=== PATIENT | female | born 1950 ===

== ENCOUNTER 2017-11-11 09:58 | Day surgery (SDC) | payer MEDICARE ==
[2017-11-11 10:40] VITALS: BMI 31.4
[2017-11-11] MEDS ORDERED: Propofol 10 mg/ml Inj (20 ML) ONE ×3 (10:59→11:47)
[2017-11-11] MEDS ORDERED: Midazolam 2 MG/2 ML VIAL ONE (11:09)
[2017-11-11 15:52] VITALS: TEMP 97.8
[2017-11-11 15:53] VITALS: PULSE 59
[2017-11-11 15:56] VITALS: BP 170/95; RESP 19; O2SAT 99
== END 2017-11-11 12:55 | disposition home or self-care (01) ==
LOC: C.ENDO 09:58
PROVIDERS: ATTEND Internal Medicine Gastroenterology
DX: Z12.11 Encounter for screening for malignant neoplasm of colon (principal); K64.1 Second degree hemorrhoids; K59.00 Constipation, unspecified
CPT/HCPCS: 45378; J2250; J2704

== ENCOUNTER 2017-11-18 09:30 | Inpatient (IN) | payer MEDICARE ==
[2017-11-18 09:30] VITALS: BMI 31.4
--- NOTE | 2017-11-18 10:25 | C.PDOC ---
History Of Present Illness 67-YEAR-OLD FEMALE, PRESENTS TO THE EMERGENCY DEPARTMENT S/P COLONOSCOPY BY DR KHOURY ONE WEEK AGO. PATIENT NOW COMPLAINING OF NEW ONSET PERSISTENT INTERMITTENT B/L UPPER QUADRANT PAIN THAT IS WORSE WITH EATING. PATIENT REPORTS SHE IS ONLY ABLE TO TOLERATE A SLICE OF BREAD. STATES SHE TRIED REACHING DR KHOURY, PT REP, BUT WAS UNABLE TO GET IN CONTACT. DENIES FEVER. Time Seen by Provider: 11/18/17 10:06 Chief Complaint (Nursing): Abdominal Pain History Per: Patient History/Exam Limitations: no limitations Onset/Duration Of Symptoms: Days Current Symptoms Are (Timing): Still Present Severity: Moderate Location Of Pain/Discomfort: RLQ, LLQ Past Medical History Reviewed: Historical Data, Nursing Documentation, Vital Signs Vital Signs: Last Vital Signs Temp 98.6 F 11/18/17 15:13 Pulse 61 11/18/17 15:13 Resp 20 11/18/17 15:13 BP 180/60 H 11/18/17 15:13 Pulse Ox 98 11/18/17 15:57 - Medical History PMH: HTN, Rheumatoid Arthritis Family History: States: No Known Family Hx - Social History Hx Alcohol Use: No Hx Substance Use: No - Immunization History Hx Tetanus Toxoid Vaccination: No Hx Influenza Vaccination: Yes Hx Pneumococcal Vaccination: No Review Of Systems Constitutional: Negative for: Fever Respiratory: Negative for: Shortness of Breath Gastrointestinal: Positive for: Abdominal Pain. Negative for: Nausea, Vomiting Musculoskeletal: Negative for: Back Pain Neurological: Negative for: Weakness, Numbness, Headache, Dizziness Physical Exam - Physical Exam Appears: Non-toxic, No Acute Distress Skin: Normal Color, Warm, Dry, No Rash Head: Normacephalic Eye(s): bilateral: PERRL Oral Mucosa: Moist Lips: Normal Appearing Neck: Normal ROM Cardiovascular: Rhythm Regular, No Murmur Respiratory: Normal Breath Sounds, No Accessory Muscle Use Gastrointestinal/Abdominal: Soft, Tenderness (B/L LQ), No Guarding, No Rebound Extremity: Normal ROM, No Deformity, No Swelling Neurological/Psych: Oriented x3, Normal Speech ED Course And Treatment - Laboratory Results Result Diagrams: 11/18/17 10:40 11/18/17 10:40 ECG: Interpreted By Me, Viewed By Me ECG Rhythm: Sinus Rhythm, PVC ECG Interpretation: No Acute Changes Rate From EC O2 Sat by Pulse Oximetry: 98 (RA) Pulse Ox Interpretation: Normal Progress - Re-Evaluation Re-evaluation Note: 11/18/17 11:39 AWARE OF ER FINDINGS, REQ US, WILL EVALUATE IN ER 11/18/17 14:49 NAD NO CHANGE SINCE PRIOR EVAL. DR KHOURY @ BEDSIDE. PER DR KHOURY, +ACUTE LITZY. D/W SURG RESIDENT AWARE OF ER FINDINGS WILL EVAL - Data Reviewed Data Reviewed: Lab, Diagnostic imaging, EKG, Old records Disposition Counseled Patient/Family Regarding: Studies Performed, Diagnosis - Disposition Disposition: HOSPITALIZED Disposition Time: 14:50 Condition: SERIOUS - POA Present On Arrival: None - Clinical Impression Clinical Impression: Acute cholecystitis, Calculous cholecystitis with obstruction - Scribe Statement The provider has reviewed the documentation as recorded by the Scribe (Momo Asif) All medical record entries made by the Scribe were at my direction and personally dictated by me. I have reviewed the chart and agree that the record accurately reflects my personal performance of the history, physical exam, medical decision making, and the department course for this patient. I have also personally directed, reviewed, and agree with the discharge instructions and disposition. Decision To Admit - Pt Status Changed To: Hospital Disposition Of: Inpatient - Admit Certification Admit to Inpatient:: After my assessment, the patient will require hospitalization for at least two midnights. This is because of the severity of symptoms shown, intensity of services needed, and/or the medical risk in this patient being treated as an outpatient. - InPatient: Physician Admission Certification:: SEE NOTE - . Bed Request Type: Regular Admitting Physician: Christiano Quintanilla Patient Diagnosis: Acute cholecystitis, Calculous cholecystitis with obstruction
[2017-11-18] MEDS ORDERED: Sodium Chloride 0.9% 1,000 ML IV ONE ×2 (10:35→14:52)
[2017-11-18 10:49] LABS: BASO # 0.1 K/uL (0.0-0.2); BASO % 1.2 % (0.0-2.0); EOS # 0.2 K/uL (0.0-0.7); EOS % 3.2 % (0.0-4.0); HEMOGLOBIN 12.9 g/dL (11.0-16.0); LYMPH # 1.2 K/uL (1.0-4.3); LYMPH % 20.9 % (20.0-40.0); MEAN CORPUSCULAR HEMOGLOBIN 27.2 pg (27.0-31.0); MEAN CORPUSCULAR HGB CONC 33.6 g/dL (33.0-37.0); MEAN PLATELET VOLUME 8.6 fL (7.2-11.7); MONO # 0.7 K/uL (0.0-0.8); MONO % 11.1 % (0.0-10.0); NEUT # 3.7 K/uL (1.8-7.0); NEUT % 63.6 % (50.0-75.0); RBC 4.75 Mil/uL (3.80-5.20); WHITE BLOOD COUNT 5.9 K/uL (4.8-10.8)
[2017-11-18 11:24] LABS: ALB/GLOB RATIO 0.9 (1.0-2.1); ALT/SGPT 568 U/L (9-52); AST/SGOT 521 U/L (14-36); BLOOD UREA NITROGEN 9 mg/dL (7-17); GFR AFRICAN-AMERICAN > 60; GFR NON-AFRICAN AMERICAN > 60; LIPASE 195 U/L (23-300)
[2017-11-18] MEDS ORDERED: Iodixanol 320 MG/ML 100 ML BOTTLE IV ONE (11:50)
[2017-11-18 12:06] LABS: SQUAMOUS EPITHIAL 4 /hpf (0-5); URINE BACTERIA RARE (<OCC); URINE BILIRUBIN NEGATIVE (NEGATIVE); URINE BLOOD NEGATIVE (NEGATIVE); URINE CLARITY Hazy (Clear); URINE COLOR Amber (YELLOW); URINE GLUCOSE (UA) NORMAL (Normal); URINE LEUKOCYTE ESTERASE NEG Leu/uL (Negative); URINE PROTEIN NEGATIVE (NEGATIVE)
--- NOTE | 2017-11-18 13:50 | CT ---
PROCEDURE: CT Abdomen and Pelvis with contrast HISTORY: abd pain SP COLONOSCOPY COMPARISON: None. TECHNIQUE: Contrast dose: 100 mL Visipaque 320 Radiation dose: Total exam DLP = 998.45 mGy-cm. This CT exam was performed using one or more of the following dose reduction techniques: Automated exposure control, adjustment of the mA and/or kV according to patient size, and/or use of iterative reconstruction technique. FINDINGS: LOWER THORAX: Very small hiatal hernia. LIVER: Unremarkable. No gross lesion or ductal dilatation. GALLBLADDER AND BILE DUCTS: Cholelithiasis. Diffuse mural thickening and mild stranding of the very cholecystic. Findings concerning for acute cholecystitis. Consider correlation with either ultrasound or radionuclide hepatobiliary scan if clinically warranted. PANCREAS: Unremarkable. No gross lesion or ductal dilatation. SPLEEN: Unremarkable. ADRENALS: Unremarkable. No mass. KIDNEYS AND URETERS: Unremarkable. No hydronephrosis. No solid mass. VASCULATURE: Unremarkable. No aortic aneurysm. BOWEL: Unremarkable. No obstruction. No gross mural thickening. APPENDIX: Normal appendix. PERITONEUM: Unremarkable. No free fluid. No free air. LYMPH NODES: Unremarkable. No enlarged lymph nodes. BLADDER: Suboptimally distended. No gross abnormality. REPRODUCTIVE: Unremarkable postmenopausal uterus. BONES: No acute fracture. OTHER FINDINGS: None. IMPRESSION: Cholelithiasis. Findings concerning for acute cholecystitis. Please correlate. If clinically warranted, consider further imaging with ultrasound and/or radionuclide hepatobiliary scan. No evidence of biliary obstruction. Very small hiatal hernia. No additional abnormality.
[2017-11-18] MEDS ORDERED: Ciprofloxacin 400mg/200ml D5W 400 MG/200 ML BAG IV STA (14:52)
--- NOTE | 2017-11-18 14:57 | CP.PCM.CON ---
<Randell Quintero - Last Filed: 11/18/17 15:08> History of Present Illness - History of Present Illness History of Present Illness: PGY5 GI Fellow Consult Note Patient is a 67yo female with PMHx significant for rheumatoid arthritis, HTN and obesity who presented to the ED with abdominal pain. Patient underwent colonoscopy with us one week ago with no significant findings, no polyps removed or biopsies taken. Last Thursday while relaxing, she developed bilateral upper abdominal pain under her ribs and epigastric area. Within approximately 2 hours symptoms had resolved. Pain continued intermittently over the weekend and she developed nausea and vomiting. She believed pain was 2/2 bloating/gas pains and used Tums with very modest relief. As symptoms continued to persist today she presented to our office this morning where she was referred to the ED for ongoing care. Blood work revealed elevated LFTs in a mixed pattern. CT and U/S both reveal a thickened gallbladder with multiple gallstones. 12 system ROS performed and negative except where stated. PMHx: See HPI PSHx: Cataracts FHx: No significant family history per patient Social: Denies tobacco, EtOH or illicit drug use Endo: Colonoscopy 11/11/17 - no significant findings Past Patient History - Past Medical History & Family History Past Medical History?: Yes - Past Social History Smoking Status: Never Smoked - CARDIAC Hx Hypertension: Yes - PULMONARY Hx Respiratory Disorders: No - NEUROLOGICAL Hx Neurological Disorder: No - HEENT Hx HEENT Problems: Yes Hx Glaucoma: Yes - RENAL Hx Chronic Kidney Disease: No - ENDOCRINE/METABOLIC Hx Endocrine Disorders: No - HEMATOLOGICAL/ONCOLOGICAL Hx Blood Disorders: No - INTEGUMENTARY Hx Dermatological Problems: No - MUSCULOSKELETAL/RHEUMATOLOGICAL Hx Rheumatoid Arthritis: Yes - GASTROINTESTINAL Hx Gastrointestinal Disorders: No - GENITOURINARY/GYNECOLOGICAL Hx Genitourinary Disorders: No - PSYCHIATRIC Hx Substance Use: No - SURGICAL HISTORY Hx Surgeries: Yes Hx Cataract Extraction: Yes (BILATERAL) Other/Comment: UTERINE POLYP REMOVAL. Colonoscopy - ANESTHESIA Hx Anesthesia: Yes Hx Anesthesia Reactions: No Meds Allergies/Adverse Reactions: Allergies Allergy/AdvReac Type Severity Reaction Status Date / Time Penicillins Allergy Intermediate RASH Verified 11/11/17 10:41 - Medications Medications: Current Medications Sodium Chloride (Sodium Chloride 0.9%) 1,000 mls @ 100 mls/hr IV .Q10H ONE Stop: 11/18/17 20:34 Ciprofloxacin (Cipro 400mg/200ml Dsw) 400 mg in 200 mls @ 133.333 mls/hr IV STAT STA PRN Reason: Protocol Stop: 11/18/17 16:21 Metronidazole (Flagyl) 500 mg in 100 mls @ 100 mls/hr IV STAT PAULETTE PRN Reason: Protocol Sodium Chloride (Sodium Chloride 0.9%) 1,000 mls @ 100 mls/hr IV .Q10H ONE Stop: 11/19/17 00:51 Physical Exam - Constitutional Appears: Non-toxic, No Acute Distress - Eye Exam Eye Exam: EOMI, PERRL - ENT Exam ENT Exam: Mucous Membranes Moist - Respiratory Exam Respiratory Exam: Clear to Auscultation Bilateral. absent: Rales, Rhonchi, Wheezes - Cardiovascular Exam Cardiovascular Exam: RRR, +S1, +S2 - GI/Abdominal Exam GI & Abdominal Exam: Normal Bowel Sounds, Soft, Tenderness (RUQ, epigastric). absent: Distended, Firm, Guarding, Organomegaly, Rigid - Extremities Exam Extremities exam: Positive for: normal inspection. Negative for: pedal edema - Neurological Exam Neurological exam: Alert, Oriented x3 - Psychiatric Exam Psychiatric exam: Normal Affect, Normal Mood - Skin Skin Exam: Dry, Warm Results - Vital Signs Recent Vital Signs: Last Vital Signs Temp 98.3 F 11/18/17 09:43 Pulse 69 11/18/17 09:43 Resp 16 11/18/17 09:43 BP 160/94 H 11/18/17 09:43 Pulse Ox 98 11/18/17 14:51 - Labs Result Diagrams: 11/18/17 10:40 11/18/17 10:40 Labs: Laboratory Results - last 24 hr 11/18/17 11/18/17 11/18/17 10:40 10:40 11:59 WBC 5.9 RBC 4.75 Hgb 12.9 Hct 38.5 MCV 81.0 D MCH 27.2 MCHC 33.6 RDW 16.0 H Plt Count 266 MPV 8.6 Neut % (Auto) 63.6 Lymph % (Auto) 20.9 [place] % (Auto) 11.1 H Eos % (Auto) 3.2 Baso % (Auto) 1.2 Neut # (Auto) 3.7 Lymph # (Auto) 1.2 [place] # (Auto) 0.7 Eos # (Auto) 0.2 Baso # (Auto) 0.1 Sodium 135 Potassium 4.0 Chloride 99 Carbon Dioxide 27 Anion Gap 14 BUN 9 Creatinine 0.6 L Est GFR ( Amer) > 60 Est GFR (Non-Af Amer) > 60 Random Glucose 97 Calcium 10.0 Total Bilirubin 1.8 H AST 521 H ALT 568 H D Alkaline Phosphatase 257 H Total Protein 8.4 H Albumin 4.0 Globulin 4.4 H Albumin/Globulin Ratio 0.9 L Lipase 195 Urine Color Devora Urine Clarity Hazy Urine pH 6.0 Ur Specific [place] 1.010 Urine Protein Negative Urine Glucose (UA) Normal Urine Ketones Negative Urine Blood Negative Urine Nitrate Negative Urine Bilirubin Negative Urine Urobilinogen 2.0 H Ur Leukocyte Esterase Neg Urine WBC (Auto) < 1 Urine RBC (Auto) < 1 Ur Squamous Epith Cells 4 Urine Bacteria Rare Assessment & Plan - Assessment and Plan (Free Text) Assessment: Patient is a 67yo female with PMHx significant for rheumatoid arthritis, HTN and obesity who presented to the ED with abdominal pain. Patient underwent colonoscopy with us one week ago with no significant findings, no polyps removed or biopsies taken -Acute cholecystitis -Cholelithiasis -Rheumatoid arthritis -HTN -Obesity Plan: -CT and U/S reviewed -Recommend initiation of Cipro/Flagyl given penicillin allergy -Surgical evaluation requested -Maintain NPO -Check hepatitis serologies -Consider autoimmune markers given h/o RA -Trend LFTs - Date & Time Date: 11/18/17 Time: 14:00 <Bryan Wylie - Last Filed: 11/18/17 18:11> Meds - Medications Medications: Current Medications Docusate Sodium (Colace) 100 mg PO BID PAULETTE Sodium Chloride (Sodium Chloride 0.9%) 1,000 mls @ 100 mls/hr IV .Q10H ONE Stop: 11/18/17 20:34 Last Admin: 11/18/17 11:00 Dose: 100 mls/hr Metronidazole (Flagyl) 500 mg in 100 mls @ 100 mls/hr IV STAT PAULETTE PRN Reason: Protocol Sodium Chloride (Sodium Chloride 0.9%) 1,000 mls @ 100 mls/hr IV .Q10H ONE Stop: 11/19/17 00:51 Lactated Ringer's (Lactated Ringer's) 1,000 mls @ 125 mls/hr IV .Q8H [facility] Ondansetron HCl (Zofran Inj) 4 mg IVP Q6 PRN PRN Reason: Nausea/Vomiting Oxycodone/Acetaminophen (Percocet 5/325 Mg Tab) 1 tab PO Q4 PRN PRN Reason: Pain, moderate (4-7) Stop: 11/21/17 16:07 Results - Vital Signs Recent Vital Signs: Last Vital Signs Temp 98.6 F 11/18/17 15:13 Pulse 61 11/18/17 15:13 Resp 20 11/18/17 15:13 BP 180/60 H 11/18/17 15:13 Pulse Ox 98 11/18/17 16:30 - Labs Result Diagrams: 11/18/17 10:40 11/18/17 10:40 Labs: Laboratory Results - last 24 hr 11/18/17 11/18/17 11/18/17 10:40 10:40 11:59 WBC 5.9 RBC 4.75 Hgb 12.9 Hct 38.5 MCV 81.0 D MCH 27.2 MCHC 33.6 RDW 16.0 H Plt Count 266 MPV 8.6 Neut % (Auto) 63.6 Lymph % (Auto) 20.9 [place] % (Auto) 11.1 H Eos % (Auto) 3.2 Baso % (Auto) 1.2 Neut # (Auto) 3.7 Lymph # (Auto) 1.2 [place] # (Auto) 0.7 Eos # (Auto) 0.2 Baso # (Auto) 0.1 PT INR APTT Sodium 135 Potassium 4.0 Chloride 99 Carbon Dioxide 27 Anion Gap 14 BUN 9 Creatinine 0.6 L Est GFR ( Amer) > 60 Est GFR (Non-Af Amer) > 60 Random Glucose 97 Calcium 10.0 Total Bilirubin 1.8 H AST 521 H ALT 568 H D Alkaline Phosphatase 257 H Total Protein 8.4 H Albumin 4.0 Globulin 4.4 H Albumin/Globulin Ratio 0.9 L Lipase 195 Urine Color Devora Urine Clarity Hazy Urine pH 6.0 Ur Specific [place] 1.010 Urine Protein Negative Urine Glucose (UA) Normal Urine Ketones Negative Urine Blood Negative Urine Nitrate Negative Urine Bilirubin Negative Urine Urobilinogen 2.0 H Ur Leukocyte Esterase Neg Urine WBC (Auto) < 1 Urine RBC (Auto) < 1 Ur Squamous Epith Cells 4 Urine Bacteria Rare Blood Type Antibody Screen 11/18/17 11/18/17 14:50 15:08 WBC RBC Hgb Hct MCV MCH MCHC RDW Plt Count MPV Neut % (Auto) Lymph % (Auto) [place] % (Auto) Eos % (Auto) Baso % (Auto) Neut # (Auto) Lymph # (Auto) [place] # (Auto) Eos # (Auto) Baso # (Auto) PT 14.3 H INR 1.3 APTT 30 Sodium Potassium Chloride Carbon Dioxide Anion Gap BUN Creatinine Est GFR ( Amer) Est GFR (Non-Af Amer) Random Glucose Calcium Total Bilirubin AST ALT Alkaline Phosphatase Total Protein Albumin Globulin Albumin/Globulin Ratio Lipase Urine Color Urine Clarity Urine pH Ur Specific [place] Urine Protein Urine Glucose (UA) Urine Ketones Urine Blood Urine Nitrate Urine Bilirubin Urine Urobilinogen Ur Leukocyte Esterase Urine WBC (Auto) Urine RBC (Auto) Ur Squamous Epith Cells Urine Bacteria Blood Type A NEGATIVE Antibody Screen Negative Attending/Attestation - Attestation I have personally seen and examined this patient.: Yes I have fully participated in the care of the patient.: Yes I have reviewed all pertinent clinical information: Yes Notes (Text): 11/18/17 18:06 I have seen and examined patient with GI fellow. Agree with above documentation with the following additions. In brief, this is a 67 year old female with history of arthritis, HTN who presents to hospital with complaint of progressive abdominal pain. She describes a sudden onset sharp epigastric abdominal pain, 6/10 intensity which began 4 days ago with radiation to RUQ and worse after meal consumption. This was accompanied by multiple episodes of non- bloody emesis. She initially believed this was related to gas and took Tums without relief. She otherwise denies fever/chills, weight loss, rectal bleeding , or change in bowel habits. She had a colonoscopy last week which showed internal hemorrhoids. Review of vitals from today shows elevated BP. HTN Arthritis Abdominal pain, transaminitis - acute cholecystitis CT and US imaging reviewed by me showing normal caliber CBD with GB wall thickening and multiple gallstones - NPO - Suggest beginning antibiotic therapy, cipro/flagyl given PCN allergy - Surgical evaluation for consideration of cholecystectomy - Obtain viral hepatitis serologies - Continue to monitor LFTs - Will continue to monitor patient clinical course
[2017-11-18] MEDS ORDERED: metroNIDAZOLE IV 500 mg/100 ml 500 MG/100 ML BAG IV SCH (15:00)
--- NOTE | 2017-11-18 15:03 | US ---
Right upper quadrant abdominal ultrasound History: Abdominal pain. Comparison: CT scan dated 11/18/2017 Technique: Real-time sonography was performed through the right upper quadrant of the abdomen. Findings Liver: 18.0 centimeters in length. Increased echogenicity of the hepatic parenchymal cortex suggestive for fatty infiltration versus hepatic parenchymal disease. Clinical correlation. Gallbladder: Cholelithiasis with prominent calculi measuring up to 2.2 centimeters. Associated gallbladder wall thickening measuring up to 3.2 millimeters. Associated gallbladder wall edema. Negative sonographic Costello's sign. Common bile duct is prominent measuring up to 6.1 millimeters. Limited visualization of the pancreas. Visualized aorta and IVC are preserved. Right kidney: 12.2 x 4.5 x 5.5 centimeters. No calculi or hydronephrosis. Impression: 1. Cholelithiasis with prominent calculi measuring up to 2.2 centimeters. Associated gallbladder wall thickening up to 3.2 millimeters. Gallbladder wall edema. These findings may represent an acute cholecystitis. Clinical correlation. Correlation with nuclear medicine study may be helpful if clinically indicated for further evaluation. 2. Prominent liver measuring up to 18 centimeters with associated diffuse increased echogenicity of the hepatic parenchymal cortex suggestive for fatty infiltration versus hepatic parenchymal disease. Clinical correlation. 3. Prominent common bile duct up to 6 millimeters. 4. Limited visualization of the pancreas.
[2017-11-18] MEDS ORDERED: Ciprofloxacin 400mg/200ml D5W 400 MG/200 ML BAG IVPB ONE (15:06)
[2017-11-18 15:32] LABS: INR 1.3; PROTHROMBIN TIME 14.3 SECONDS (9.7-12.2)
[2017-11-18] MEDS ORDERED: Oxycodone/Acetaminophen 5/325 mg Tab PO PRN (16:06)
[2017-11-18] MEDS ORDERED: Lactated Ringer's 1,000 ML ONE (18:23)
[2017-11-18] MEDS: Lactated Ringer's 1,000 ML IV SCH (19:12)
[2017-11-18] MEDS ORDERED: metroNIDAZOLE IV 500 mg/100 ml 500 MG/100 ML BAG IV ONE (20:00)
[2017-11-19] MEDS: Lactated Ringer's 1,000 ML IV SCH ×3 (01:15→17:47)
--- NOTE | 2017-11-19 05:17 | CP.PCM.HP ---
History of Present Illness - History of Present Illness History of Present Illness: Late entry H&P for Dr. Quintanilla Patient is a 67F with upper abdominal pain for 5 days. Patient had pain start the day after a colonoscopy, which was uneventful. Patient reports the pain is crampy, comes and goes, and it worse with food. Patient complains of diarrhea and nausea, but denies fevers, chills, dysuria, or vomiting. Patient's pain has not improved so she was referred to the ER. Patient has never had any previous episodes PMH: rheumatoid arthritis, HTN, HLD PSH: ALL: PCN Present on Admission - Present on Admission Any Indicators Present on Admission: No Review of Systems - Review of Systems All systems: reviewed and no additional remarkable complaints except (as per HPI ) Past Patient History - Past Medical History & Family History Past Medical History?: Yes Past Family History: Reviewed and not pertinent - Past Social History Smoking Status: Never Smoked Alcohol: None Drugs: Denies - CARDIAC Hx Hypertension: Yes - PULMONARY Hx Respiratory Disorders: No - NEUROLOGICAL Hx Neurological Disorder: No - HEENT Hx HEENT Problems: Yes Hx Glaucoma: Yes - RENAL Hx Chronic Kidney Disease: No - ENDOCRINE/METABOLIC Hx Endocrine Disorders: No - HEMATOLOGICAL/ONCOLOGICAL Hx Blood Disorders: No - INTEGUMENTARY Hx Dermatological Problems: No - MUSCULOSKELETAL/RHEUMATOLOGICAL Hx Falls: No - GASTROINTESTINAL Hx Gastrointestinal Disorders: No - GENITOURINARY/GYNECOLOGICAL Hx Genitourinary Disorders: No - PSYCHIATRIC Hx Substance Use: No - SURGICAL HISTORY Hx Surgeries: Yes Hx Cataract Extraction: Yes (BILATERAL) Other/Comment: UTERINE POLYP REMOVAL. Colonoscopy - ANESTHESIA Hx Anesthesia: Yes Hx Anesthesia Reactions: No Hx Malignant Hyperthermia: No Has any member of the family had a problem w/ anesthesia?: No Meds Allergies/Adverse Reactions: Allergies Allergy/AdvReac Type Severity Reaction Status Date / Time Penicillins Allergy Intermediate RASH Verified 11/11/17 10:41 Physical Exam - Constitutional Appears: Well, Non-toxic, No Acute Distress - Head Exam Head Exam: ATRAUMATIC, NORMOCEPHALIC - Eye Exam Eye Exam: Normal appearance. absent: Conjunctival injection, Scleral icterus - ENT Exam ENT Exam: Mucous Membranes Moist, Normal Oropharynx - Respiratory Exam Respiratory Exam: NORMAL BREATHING PATTERN. absent: Accessory Muscle Use, Respiratory Distress - Cardiovascular Exam Cardiovascular Exam: RRR - GI/Abdominal Exam GI & Abdominal Exam: Soft, Tenderness (RUQ>LUQ). absent: Distended, Mass, Rebound - Extremities Exam Extremities exam: Positive for: pedal pulses present. Negative for: calf tenderness, pedal edema - Neurological Exam Neurological exam: Alert, Oriented x3 - Psychiatric Exam Psychiatric exam: Normal Affect, Normal Mood - Skin Skin Exam: Dry, Intact, Normal Color, Warm Results - Vital Signs Recent Vital Signs: Last Vital Signs Temp 98.1 F 11/18/17 23:45 Pulse 64 11/18/17 23:45 Resp 20 11/18/17 23:45 BP 169/51 H 11/18/17 23:45 Pulse Ox 96 11/18/17 23:45 - Labs Result Diagrams: 11/18/17 10:40 11/18/17 10:40 Labs: Laboratory Results - last 24 hr 11/18/17 11/18/17 11/18/17 10:40 10:40 11:59 WBC 5.9 RBC 4.75 Hgb 12.9 Hct 38.5 MCV 81.0 D MCH 27.2 MCHC 33.6 RDW 16.0 H Plt Count 266 MPV 8.6 Neut % (Auto) 63.6 Lymph % (Auto) 20.9 [place] % (Auto) 11.1 H Eos % (Auto) 3.2 Baso % (Auto) 1.2 Neut # (Auto) 3.7 Lymph # (Auto) 1.2 [place] # (Auto) 0.7 Eos # (Auto) 0.2 Baso # (Auto) 0.1 PT INR APTT Sodium 135 Potassium 4.0 Chloride 99 Carbon Dioxide 27 Anion Gap 14 BUN 9 Creatinine 0.6 L Est GFR ( Amer) > 60 Est GFR (Non-Af Amer) > 60 Random Glucose 97 Calcium 10.0 Total Bilirubin 1.8 H AST 521 H ALT 568 H D Alkaline Phosphatase 257 H Total Protein 8.4 H Albumin 4.0 Globulin 4.4 H Albumin/Globulin Ratio 0.9 L Lipase 195 Urine Color Devora Urine Clarity Hazy Urine pH 6.0 Ur Specific [place] 1.010 Urine Protein Negative Urine Glucose (UA) Normal Urine Ketones Negative Urine Blood Negative Urine Nitrate Negative Urine Bilirubin Negative Urine Urobilinogen 2.0 H Ur Leukocyte Esterase Neg Urine WBC (Auto) < 1 Urine RBC (Auto) < 1 Ur Squamous Epith Cells 4 Urine Bacteria Rare Blood Type Antibody Screen 11/18/17 11/18/17 14:50 15:08 WBC RBC Hgb Hct MCV MCH MCHC RDW Plt Count MPV Neut % (Auto) Lymph % (Auto) [place] % (Auto) Eos % (Auto) Baso % (Auto) Neut # (Auto) Lymph # (Auto) [place] # (Auto) Eos # (Auto) Baso # (Auto) PT 14.3 H INR 1.3 APTT 30 Sodium Potassium Chloride Carbon Dioxide Anion Gap BUN Creatinine Est GFR ( Amer) Est GFR (Non-Af Amer) Random Glucose Calcium Total Bilirubin AST ALT Alkaline Phosphatase Total Protein Albumin Globulin Albumin/Globulin Ratio Lipase Urine Color Urine Clarity Urine pH Ur Specific [place] Urine Protein Urine Glucose (UA) Urine Ketones Urine Blood Urine Nitrate Urine Bilirubin Urine Urobilinogen Ur Leukocyte Esterase Urine WBC (Auto) Urine RBC (Auto) Ur Squamous Epith Cells Urine Bacteria Blood Type A NEGATIVE Antibody Screen Negative - Imaging and Cardiology CT scan - pelvis Status: Image reviewed by me, Report reviewed by me US - abdomen Status: Image reviewed by me, Report reviewed by me Assessment & Plan - Assessment and Plan (Free Text) Assessment: 67F with upper abdominal pain with acute cholecystitis Plan: -OR 11/19 for laparoschopic cholecystectomy -NPO after midnight -AM labs -IVF -PRN pain medication and nausea medication -start home meds -GI input appreciated -follow up MRCP due to mildly enlarged CBD and elevated t-bili Seen and discussed with Dr. Dwight Shah, PGY2
--- NOTE | 2017-11-19 07:44 | RAD ---
Chest x-ray single frontal view History: Preoperative evaluation. Comparison: 12/17/2016 Findings: Mild venous congestion. Few scattered nodular densities in the right suprahilar region and right lower lung zone may represent prominent vessels on end. Right hilar prominence. Tortuous aorta. Degenerative changes in the spine and shoulders. Upper lobe granulomatous changes. Mammilated right hemidiaphragm. Impression: Mild venous congestion. Few scattered nodular densities in the right suprahilar region and right lower lung zone may represent prominent vessels on end. Right hilar prominence. Tortuous aorta. Degenerative changes in the spine and shoulders. Upper lobe granulomatous changes. Mammilated right hemidiaphragm.
--- NOTE | 2017-11-19 08:59 | CP.PCM.PN ---
<BetikayRandell lord - Last Filed: 11/19/17 08:57> Subjective - Date & Time of Evaluation Date of Evaluation: 11/19/17 Time of Evaluation: 07:00 - Subjective Subjective: PGY5 GI Fellow Progress Note Patient seen and examined bedside this morning. States abdominal pain has improved since yesterday. No nausea, vomiting, fever. Denies any issues overnight. 12 system ROS performed and negative except where stated. Objective - Vital Signs/Intake and Output Vital Signs (last 24 hours): Temp Pulse Resp BP Pulse Ox 97.6 F 52 L 20 178/83 H 96 11/19/17 08:40 11/19/17 08:40 11/19/17 08:40 11/19/17 08:40 11/19/17 08:40 - Medications Medications: Current Medications Docusate Sodium (Colace) 100 mg PO BID [facility] Last Admin: 11/18/17 19:13 Dose: Not Given Folic Acid (Folic Acid) 1 mg PO DAILY [facility] Hydrochlorothiazide (Microzide) 12.5 mg PO DAILY [facility] Lactated Ringer's (Lactated Ringer's) 1,000 mls @ 125 mls/hr IV .Q8H [facility] Last Admin: 11/19/17 01:15 Dose: Not Given Losartan Potassium (Cozaar) 50 mg PO DAILY [facility] Methotrexate (Methotrexate) 2.5 mg PO QWK [facility] Ondansetron HCl (Zofran Inj) 4 mg IVP Q6 PRN PRN Reason: Nausea/Vomiting Oxycodone/Acetaminophen (Percocet 5/325 Mg Tab) 1 tab PO Q4 PRN PRN Reason: Pain, moderate (4-7) Stop: 11/21/17 16:07 - Labs Labs: 11/18/17 10:40 11/18/17 10:40 PT 14.3 SECONDS (9.7-12.2) H 11/18/17 15:08 INR 1.3 11/18/17 15:08 APTT 30 SECONDS (21-34) 11/18/17 15:08 - Constitutional Appears: Non-toxic, No Acute Distress - Eye Exam Eye Exam: EOMI, PERRL - ENT Exam ENT Exam: Mucous Membranes Moist - Respiratory Exam Respiratory Exam: Clear to Ausculation Bilateral. absent: Rales, Rhonchi, Wheezes - Cardiovascular Exam Cardiovascular Exam: RRR, +S1, +S2 - GI/Abdominal Exam GI & Abdominal Exam: Soft, Tenderness (minimal RUQ), Normal Bowel Sounds. absent: Distended, Firm, Guarding, Rigid, Organomegaly - Extremities Exam Extremities Exam: Normal Inspection. absent: Pedal Edema - Neurological Exam Neurological Exam: Alert, Awake, Oriented x3 - Psychiatric Exam Psychiatric exam: Normal Affect, Normal Mood - Skin Skin Exam: Dry, Warm Assessment and Plan - Assessment and Plan (Free Text) Assessment: Patient is a 67yo female with PMHx significant for rheumatoid arthritis, HTN and obesity who presented to the ED with abdominal pain. Patient underwent colonoscopy with us one week ago with no significant findings, no polyps removed or biopsies taken -Acute cholecystitis -Cholelithiasis -Rheumatoid arthritis -HTN -Obesity Plan: -Plan for laparoscopic cholecystectomy today -Continue empiric coverage with Cipro/Flagyl given penicillin allergy -Maintain NPO -Check hepatitis serologies -Consider autoimmune markers given h/o RA -Trend LFTs - AM labs ordered <Bryan Wylie - Last Filed: 11/19/17 09:19> Objective - Vital Signs/Intake and Output Vital Signs (last 24 hours): Temp Pulse Resp BP Pulse Ox 97.6 F 52 L 20 178/83 H 96 11/19/17 08:40 11/19/17 08:40 11/19/17 08:40 11/19/17 08:40 11/19/17 08:40 - Medications Medications: Current Medications Docusate Sodium (Colace) 100 mg PO BID [facility] Last Admin: 11/18/17 19:13 Dose: Not Given Folic Acid (Folic Acid) 1 mg PO DAILY [facility] Hydrochlorothiazide (Microzide) 12.5 mg PO DAILY [facility] Lactated Ringer's (Lactated Ringer's) 1,000 mls @ 125 mls/hr IV .Q8H [facility] Last Admin: 11/19/17 01:15 Dose: Not Given Losartan Potassium (Cozaar) 50 mg PO DAILY [facility] Methotrexate (Methotrexate) 2.5 mg PO QWK [facility] Ondansetron HCl (Zofran Inj) 4 mg IVP Q6 PRN PRN Reason: Nausea/Vomiting Oxycodone/Acetaminophen (Percocet 5/325 Mg Tab) 1 tab PO Q4 PRN PRN Reason: Pain, moderate (4-7) Stop: 11/21/17 16:07 - Labs Labs: 11/18/17 10:40 11/18/17 10:40 PT 14.3 SECONDS (9.7-12.2) H 11/18/17 15:08 INR 1.3 11/18/17 15:08 APTT 30 SECONDS (21-34) 11/18/17 15:08 Attending/Attestation - Attestation I have personally seen and examined this patient.: Yes I have fully participated in the care of the patient.: Yes I have reviewed all pertinent clinical information, including history, physical exam and plan: Yes Notes (Text): 11/19/17 09:17 I have seen and examined patient with GI fellow. No acute events overnight, she is seen resting in bed comfortably. Her abdominal pain has slightly improved, though persists on RUQ. She denies nausea, vomiting, fever/chills. Review of vitals from today shows elevated BP. HTN Obesity Rheumatoid arthritis Abdominal pain - acute cholecystitis US reviewed by me showing thick walled GB with cholelithiasis, no significant biliary dilation, CBD normal caliber - NPO - Continue with antibiotic therapy - Continue to monitor LFTs, awaiting autoimmune and viral hepatitis serologies - Patient planned for cholecystectomy today, follow up surgical recommendations - No further planned GI intervention, will sign off case. Please reconsult as necessary, thank you.
[2017-11-19 09:17] LABS: ALB/GLOB RATIO 0.9 (1.0-2.1); ALBUMIN 3.4 g/dL (3.5-5.0); ALT/SGPT 327 U/L (9-52); AST/SGOT 155 U/L (14-36); BLOOD UREA NITROGEN 10 mg/dL (7-17); CALCIUM 9.2 mg/dl (8.6-10.4); GFR AFRICAN-AMERICAN > 60; GFR NON-AFRICAN AMERICAN > 60
[2017-11-19 10:51] LABS: HEPATITIS B SURFACE AG Negative (NEGATIVE)
[2017-11-19 10:57] LABS: HEPATITIS A IGM NEGATIVE (NEGATIVE); HEPATITIS B CORE AB NEGATIVE (NEGATIVE)
[2017-11-19 11:08] LABS: HEPATITIS C ANTIBODY NEGATIVE (NEGATIVE)
[2017-11-19] MEDS ORDERED: Ciprofloxacin 400mg/200ml D5W 400 MG/200 ML BAG IVPB ONE (11:33)
--- NOTE | 2017-11-19 11:38 | MRI ---
PROCEDURE: Magnetic Resonance Cholangiopancreatography HISTORY: COMPARISON: None available. TECHNIQUE: Multiplanar, multisequence MR images of the abdomen were obtained, including heavily T2 weighted MRCP images of the biliary system. Rotating maximum intensity projection images of the biliary system were generated. FINDINGS: MRCP: The common bile duct is of a normal caliber. No evidence of choledocholithiasis. No intrahepatic biliary ductal dilatation. LIVER: Unremarkable. GALLBLADDER: Cholelithiasis. Sludge. Mild diffuse mural thickening. No pericholecystic fluid or edema. The findings are equivocal for cholecystitis. SPLEEN: Unremarkable. PANCREAS: Unremarkable. ADRENALS: Unremarkable. KIDNEYS: Unremarkable. AORTA: No aneurysm. ASCITES: None. OTHER FINDINGS: None. IMPRESSION: Cholelithiasis with mild diffuse mural thickening of the gallbladder. Equivocal findings for cholecystitis. No evidence of choledocholithiasis or biliary obstruction. The remainder of the examination is unremarkable.
[2017-11-19] MEDS ORDERED: Propofol 10 mg/ml Inj (20 ML) ONE (11:44)
[2017-11-19] MEDS ORDERED: Midazolam 2 MG/2 ML VIAL ONE (11:44)
[2017-11-19] MEDS ORDERED: Neostigmine Methylsulfate 3mg/3ml Syringe IV ONE (13:05)
--- NOTE | 2017-11-19 13:31 | PCM.SURG1 ---
Surgeon's Initial Post Op Note - Surgeon's Notes Surgeon: Dr. Quintanilla Wine Steward: Dr. Jimenez PGY3; Steven Nguyen OMS III Type of Anesthesia: General Endo Anesthesia Administered By: Berenice Pre-Operative Diagnosis: Acute Cholecystitis, Umbilical Hernia Operative Findings: same Post-Operative Diagnosis: same Operation Performed: Laparoscopic Cholecystectomy and Umbilical Hernia repair ( primary) Specimen/Specimens Removed: gallbladder Estimated Blood Loss: EBL {In ML}: 15 Blood Products Given: N/A Drains Used: No Drains Post-Op Condition: Good Date of Surgery/Procedure: 11/19/17 Time of Surgery/Procedure: 13:31
[2017-11-19] MEDS ORDERED: Morphine 4 MG/ML VIAL IVP PRN (13:32)
--- NOTE | 2017-11-20 00:52 | OP ---
PROCEDURE DATE: 11/19/2017 PREOPERATIVE DIAGNOSES: Acute cholecystitis and umbilical hernia. POSTOPERATIVE DIAGNOSES: Acute cholecystitis and umbilical hernia. PROCEDURE: Laparoscopic cholecystectomy and umbilical hernia repair. SURGEON: Christiano Quintanilla MD STOCK REPLENISHER: Dr. Jimenez. ANESTHESIA: General. ANESTHESIOLOGIST: Dr. Ng. DESCRIPTION OF PROCEDURE: With the patient in the supine position under adequate general anesthesia, the abdomen was prepped and draped in the usual sterile manner. Veress needle puncture was performed at the umbilicus with insufflation to 15 cm of water pressure of CO2 and a 10-mm laparoscopic trocar was inserted via a semicircular infraumbilical incision. Under direct vision, additional trocars were inserted in the epigastrium and right costal margin and the gallbladder was visualized. It was noted to be thickened and distended and the gallbladder was aspirated of 50 mL of dark bile allowing the fundus to be grasped and elevated. There was omentum adherent to the outer surface as well as marked thickening of the peritoneal surface. The omentum was peeled down from the peritoneal surface of the gall bladder allowing the infundibulum to be grasped and retracted laterally. The cystic duct was identified and dissected and cleared down towards the junction with the common bile duct. The lateral peritoneal attachment was divided to free up the gall bladder neck allowing a view of safety and the cystic duct was then triply clipped and divided. The cystic artery was similarly identified and dissected and the anterior and the posterior branches were triply clipped and divided and the gallbladder was dissected free of the liver bed using electrocautery. The liver bed was edematous and thickened consistent with acute inflammation. The liver bed was inspected for hemostasis and the dissection was completed. The gallbladder was placed in a specimen retrieval bag for removal via the umbilical port site. The right upper quadrant was irrigated and suctioned. There was noted to be a small of preperitoneal fat herniated into the umbilical stalk and the umbilical stalk was divided as the umbilical skin was elevated to allow the gallbladder to be removed once the umbilical stalk had been completely freed. The umbilical defect was noted to be approximately 2 cm in diameter, which was large enough to allow the thickened gallbladder to be removed and it was noted to contain multiple stones. When the gallbladder had been removed the umbilical defect was closed transversely with three figure of eight fascial sutures of 0 Vicryl. The base of the umbilical skin was tacked down to the area of the repair with a 4-0 Monocryl suture and closure was performed with 4-0 Monocryl subcuticular sutures and Steri-Strips. All the other port sites were also closed with 4-0 Monocryl subcuticular sutures and Steri-Strips. Dry sterile dressings were applied. The patient tolerated the procedure well and transferred to the recovery room in stable condition. Estimated blood loss for the procedure was 15 mL. Christiano Quintanilla MD
[2017-11-20] MEDS: Lactated Ringer's 1,000 ML IV SCH (07:03)
[2017-11-20 07:54] VITALS: RESP 18; TEMP 98.6; O2SAT 94
[2017-11-20 08:17] LABS: BASO # 0.1 K/uL (0.0-0.2); BASO % 0.6 % (0.0-2.0); EOS # 0.1 K/uL (0.0-0.7); EOS % 0.6 % (0.0-4.0); HEMOGLOBIN 11.8 g/dL (11.0-16.0); LYMPH # 1.3 K/uL (1.0-4.3); LYMPH % 13.9 % (20.0-40.0); MEAN CELL VOLUME 80.6 fL (81.0-99.0); MEAN CORPUSCULAR HEMOGLOBIN 27.4 pg (27.0-31.0); MEAN PLATELET VOLUME 8.7 fL (7.2-11.7); MONO % 10.1 % (0.0-10.0); NEUT # 7.1 K/uL (1.8-7.0); NEUT % 74.8 % (50.0-75.0); NRBC % 0.1 % (0.0-2.0); RBC 4.3 Mil/uL (3.80-5.20); RED CELL DISTRIBUTION WIDTH 15.9 % (11.5-14.5); WHITE BLOOD COUNT 9.5 K/uL (4.8-10.8)
--- NOTE | 2017-11-20 08:30 | CP.PCM.DIS ---
Provider - Provider Date of Admission: 11/18/17 15:57 Attending physician: Christiano Quintanilla MD Time Spent in preparation of Discharge (in minutes): 5 Diagnosis - Discharge Diagnosis (1) Acute cholecystitis Status: Resolved Hospital Course - Lab Results Lab Results: Most Recent Lab Values WBC 9.5 K/uL (4.8-10.8) D 11/20/17 08:09 RBC 4.30 Mil/uL (3.80-5.20) 11/20/17 08:09 Hgb 11.8 g/dL (11.0-16.0) 11/20/17 08:09 Hct 34.6 % (34.0-47.0) 11/20/17 08:09 MCV 80.6 fL (81.0-99.0) L 11/20/17 08:09 MCH 27.4 pg (27.0-31.0) 11/20/17 08:09 MCHC 34.0 g/dL (33.0-37.0) 11/20/17 08:09 RDW 15.9 % (11.5-14.5) H 11/20/17 08:09 Plt Count 263 K/uL (130-400) 11/20/17 08:09 MPV 8.7 fL (7.2-11.7) 11/20/17 08:09 Neut % (Auto) 74.8 % (50.0-75.0) 11/20/17 08:09 Lymph % (Auto) 13.9 % (20.0-40.0) L 11/20/17 08:09 Motley % (Auto) 10.1 % (0.0-10.0) H 11/20/17 08:09 Eos % (Auto) 0.6 % (0.0-4.0) 11/20/17 08:09 Baso % (Auto) 0.6 % (0.0-2.0) 11/20/17 08:09 Neut # (Auto) 7.1 K/uL (1.8-7.0) H 11/20/17 08:09 Lymph # (Auto) 1.3 K/uL (1.0-4.3) 11/20/17 08:09 Motley # (Auto) 1.0 K/uL (0.0-0.8) H 11/20/17 08:09 Eos # (Auto) 0.1 K/uL (0.0-0.7) 11/20/17 08:09 Baso # (Auto) 0.1 K/uL (0.0-0.2) 11/20/17 08:09 PT 14.3 SECONDS (9.7-12.2) H 11/18/17 15:08 INR 1.3 11/18/17 15:08 APTT 30 SECONDS (21-34) 11/18/17 15:08 Sodium 141 mmol/L (132-148) 11/19/17 04:00 Potassium 4.3 mmol/L (3.6-5.2) 11/19/17 04:00 Chloride 104 mmol/L (98-107) 11/19/17 04:00 Carbon Dioxide 26 mmol/L (22-30) 11/19/17 04:00 Anion Gap 16 (10-20) 11/19/17 04:00 BUN 10 mg/dL (7-17) 11/19/17 04:00 Creatinine 0.6 mg/dL (0.7-1.2) L 11/19/17 04:00 Est GFR ( Amer) > 60 11/19/17 04:00 Est GFR (Non-Af Amer) > 60 11/19/17 04:00 Random Glucose 76 mg/dL (65-105) 11/19/17 04:00 Calcium 9.2 mg/dl (8.6-10.4) 11/19/17 04:00 Total Bilirubin 0.9 mg/dL (0.2-1.3) 11/19/17 04:00 AST 155 U/L (14-36) H D 11/19/17 04:00 ALT 327 U/L (9-52) H D 11/19/17 04:00 Alkaline Phosphatase 200 U/L (38-126) H D 11/19/17 04:00 Total Protein 7.0 g/dL (6.3-8.3) 11/19/17 04:00 Albumin 3.4 g/dL (3.5-5.0) L 11/19/17 04:00 Globulin 3.7 gm/dL (2.2-3.9) 11/19/17 04:00 Albumin/Globulin Ratio 0.9 (1.0-2.1) L 11/19/17 04:00 Lipase 195 U/L (23-300) 11/18/17 10:40 Urine Color Devora (YELLOW) 11/18/17 11:59 Urine Clarity Hazy (Clear) 11/18/17 11:59 Urine pH 6.0 (5.0-8.0) 11/18/17 11:59 Ur Specific [place] 1.010 (1.003-1.030) 11/18/17 11:59 Urine Protein Negative mg/dL (NEGATIVE) 11/18/17 11:59 Urine Glucose (UA) Normal mg/dL (Normal) 11/18/17 11:59 Urine Ketones Negative mg/dL (NEGATIVE) 11/18/17 11:59 Urine Blood Negative (NEGATIVE) 11/18/17 11:59 Urine Nitrate Negative (NEGATIVE) 11/18/17 11:59 Urine Bilirubin Negative (NEGATIVE) 11/18/17 11:59 Urine Urobilinogen 2.0 mg/dL (0.2-1.0) H 11/18/17 11:59 Ur Leukocyte Esterase Neg Jannette/uL (Negative) 11/18/17 11:59 Urine WBC (Auto) < 1 /hpf (0-5) 11/18/17 11:59 Urine RBC (Auto) < 1 /hpf (0-3) 11/18/17 11:59 Ur Squamous Epith Cells 4 /hpf (0-5) 11/18/17 11:59 Urine Bacteria Rare (<OCC) 11/18/17 11:59 Hepatitis A IgM Ab Negative (NEGATIVE) 11/19/17 09:56 Hep Bs Antigen Negative (NEGATIVE) 11/19/17 09:56 Hep B Core IgM Ab Negative (NEGATIVE) 11/19/17 09:56 Hepatitis C Antibody Negative (NEGATIVE) 11/19/17 09:56 Blood Type A NEGATIVE 11/18/17 14:50 Antibody Screen Negative 11/18/17 14:50 - Hospital Course Hospital Course: 67 yo F admitted to the hospital on 11/18 with RUQ abdominal pain and found to have acute cholecystitis. Initially pt had mild elevation of LFTs and was sent for MRCP, which was negative for any biliary obstruction. Her LFTs came down the following day and pt was taken for Laparoscopic Cholecystectomy with repair of umbilical hernia. She tolerated surgery well without complications. The following day pt was eating regular food and ambulating, not requiring any pain medications. She was felt stable for D C Home. Discharge Exam - Head Exam Head Exam: ATRAUMATIC, NORMOCEPHALIC - Eye Exam Eye Exam: Normal appearance - Respiratory Exam Respiratory Exam: NORMAL BREATHING PATTERN. absent: Respiratory Distress - GI/Abdominal Exam GI & Abdominal Exam: Soft. absent: Distended, Firm, Guarding, Rebound, Tenderness Additional comments: incisions C/D/I with dermabond - Neurological Exam Neurological exam: Alert, Oriented x3 - Psychiatric Exam Psychiatric exam: Normal Affect, Normal Mood - Skin Skin Exam: Dry, Intact Discharge Plan - Follow Up Plan Condition: SERIOUS Disposition: HOME/ ROUTINE Additional Instructions: You may shower. No soaking/bathing in tub. Resume regular diet and light activities such as walking. Avoid any heavy lifting >10lbs for 4 weeks. Make an appt to see Dr. Quintanilla in office in 7-10days. Take Motrin and Tylenol for pain as needed, alternate medications. Referrals: Christiano Quintanilla MD [Staff Provider] -
[2017-11-20 11:22] VITALS: BP 160/80; PULSE 76
--- NOTE | 2017-11-20 13:22 | CARD ---
APPROVED REPORT EKG Measurement Heart [id number] <Conclusion> Sinus rhythm with occasional premature ventricular complexes Otherwise normal ECG
== END 2017-11-20 12:43 | disposition home or self-care (01) | DRG 419 ==
LOC: C.ER 09:30 → C.9E 15:57 → C.6T 17:47
PROVIDERS: ADMIT Specialist; ATTEND Specialist
PROC: 0WQF4ZZ Repair Abdominal Wall, Percutaneous Endoscopic Approach (ICD-10-PCS; 2017-11-19)
PROC: 0FT44ZZ Resection of Gallbladder, Percutaneous Endoscopic Approach (ICD-10-PCS; principal; 2017-11-19 12:00)
DX: K80.00 Calculus of gallbladder with acute cholecystitis without obstruction (principal); I10 Essential (primary) hypertension; E78.5 Hyperlipidemia, unspecified; K64.8 Other hemorrhoids; K42.9 Umbilical hernia without obstruction or gangrene; M19.90 Unspecified osteoarthritis, unspecified site